=== PATIENT | female | born 1945 | race African-American/Black ===

== ENCOUNTER 2022-11-28 14:06 | Emergency (ER) | payer MEDICAID ==
[~2022-11-28] VITALS: Ht 172.7 cm; Wt 75.0 kg
[2022-11-28 14:33] VITALS: BP 146/53
== END 2022-11-28 21:42 | disposition left against medical advice (07) ==
LOC: ER 14:06
DX: Z53.21 Procedure and treatment not carried out due to patient leaving prior to being seen by health care provider (principal)
CPT/HCPCS: 93005; 99281